=== PATIENT | female | born 1975 | race Caucasian/White ===

== ENCOUNTER 2017-04-19 07:49 | Day surgery (SDC) | payer BC ==
[2017-04-16 11:04] VITALS: BMI 28.9
[~2017-04-19 07:49] MED LIST: HEPARIN SODIUM,PORCINE 5,000 UNIT/ML 1 ML VIAL SQ ONE; HYDROmorphone 0.5 MG/0.5 ML SYRINGE IVP PRN; LACTATED RINGERS 1,000 ML IV SCH; MIDAZOLAM 2 MG/2 ML VIAL IV PRN; ONDANSETRON 4 MG/2 ML VIAL IVP ONE; Pre Op ABX Message 1 EACH MISC MISCELLANE ONE; SCOPOLAMINE 1.5MG/72HR PATCH TRANSDERM ONE
[2017-04-19] MEDS ORDERED: KETAMINE 10 MG/ML 20 ML VIAL ONE (10:15)
[2017-04-19] MEDS ORDERED: LIDOCAINE 1% INJ 10MG/ML (20 ML MDV) ONE (10:15)
[2017-04-19] MEDS ORDERED: fentaNYL (PF) 50 MCG/ML 2 ML AMP ONE (10:15)
[2017-04-19] MEDS ORDERED: PROPOFOL 10 MG/ML 20 ML VIAL IV ONE (10:15)
[2017-04-19] MEDS ORDERED: MIDAZOLAM 2 MG/2 ML VIAL ONE (10:15)
[2017-04-19] MEDS ORDERED: BUPIVACAINE-EPI 0.5%-1:200,000 10 ML VIAL SQ ONE ×2 (10:29)
--- NOTE | 2017-04-19 10:40 | P.OP ---
Date of Procedure: 04/19/17 Preoperative Diagnosis: Perianal skin tag External hemorrhoids Postoperative Diagnosis: Same Procedure(s) Performed: Excision perianal skin tag Implants: NA Anesthesia: MAC, local Surgeon: Sandi Griffin Estimated Blood Loss (ml): 1 Pathology: other Condition: stable Disposition: PACU Indications for Procedure: 41 years old female presents with known external hemorrhoids and perianal skin tag which is causing hygiene issues. Informed consent obtained for excision of perianal skin tag in OR Description of Procedure: Patient was brought to the operating room and placed in lateral decubitus position. IV sedation was given as per anesthesia team. A timeout was performed to verify correct patient and correct procedure. Betadine was used to prep the local area. Local anesthetic was infiltrated to create a local field block 1 x 1 cm anal skin tag was noted just lateral to the anal verge. This was excised using Bovie electrocautery. Hemostasis was checked. The defect was closed with vertical mattress suture of 3-0 nylon. This tolerated the procedure well and was taken to post anesthesia care unit in stable condition. The sponge, instrument and needle count were correct 2
[2017-04-19 10:47] VITALS: TEMP 97.8
[2017-04-19 11:09] VITALS: RESP 18
[2017-04-19 11:41] VITALS: BP 120/66; PULSE 61
== END 2017-04-19 11:46 | disposition home or self-care (01) ==
LOC: OR 07:49
PROVIDERS: ATTEND Surgery
DX: A63.0 Anogenital (venereal) warts (principal); F41.9 Anxiety disorder, unspecified; M79.7 Fibromyalgia; F32.9 Major depressive disorder, single episode, unspecified; E78.5 Hyperlipidemia, unspecified; Z88.8 Allergy status to other drugs, medicaments and biological substances; Z79.891 Long term (current) use of opiate analgesic; Z79.899 Other long term (current) drug therapy; F17.200 Nicotine dependence, unspecified, uncomplicated
CPT/HCPCS: 81025; 88305; 46220; J2250; J1644; J2405; J2001; J3010; J2704

== ENCOUNTER → 2018-02-24 | Outpatient (CLI) | payer BC ==
[2018-02-24 11:07] LABS: Basophils % (A) 0 %; Eosinophils # (A) 0.2 k/uL (0-0.7); Eosinophils % (A) 2 %; HCT 42.7 % (34.0-46.0); Lymphocytes # (A) 2.4 k/uL (1.0-4.8); Lymphocytes % (A) 29 %; MCH 30.3 pg (25.0-35.0); MCHC 30.6 g/dL (31.0-37.0); MCV 99.2 fL (80.0-100.0); Macrocytosis Slight; Mean Platelet Volume 6.6; Monocytes # (A) 0.4 k/uL (0-1.0); Monocytes % (A) 4 %; Neutrophils # (A) 5.4 k/uL (1.3-7.7); Neutrophils % (A) 63 %; Platelet Count 394 k/uL (150-450); RBC 4.31 m/uL (3.80-5.40); RDW 14.5 % (11.5-15.5); WBC 8.5 k/uL (3.8-10.6)
[2018-02-24 11:18] LABS: ALT 28 U/L (9-52); AST 21 U/L (14-36); Albumin 3.9 g/dL (3.5-5.0); Alkaline Phosphatase 131 U/L (38-126); Anion Gap 7 mmol/L; Blood Urea Nitrogen 9 mg/dL (7-17); Calcium 9.3 mg/dL (8.4-10.2); Carbon Dioxide 24 mmol/L (22-30); Chloride 108 mmol/L (98-107); Glucose 93 mg/dL (74-99); Potassium 4.4 mmol/L (3.5-5.1); Sodium 139 mmol/L (137-145); Total Bilirubin 0.6 mg/dL (0.2-1.3); Total Protein 7.2 g/dL (6.3-8.2)
[2018-02-24 18:24] LABS: Rheumatoid Factor 7 IU/mL (0-15)
[2018-02-24 18:31] LABS: Vitamin D 25 Hydroxy 17.4 ng/mL (30.0-100.0)
== END | disposition home or self-care (01) ==
LOC: LABWHC1 10:16
PROVIDERS: ATTEND Nurse Practitioner Acute Care
DX: E55.9 Vitamin D deficiency, unspecified (principal); R53.83 Other fatigue; R25.2 Cramp and spasm; R20.2 Paresthesia of skin
CPT/HCPCS: 36415; 80053; 82306; 82607; 84207; 85025; 86038; 86431

== ENCOUNTER → 2018-03-15 | Outpatient (CLI) | payer BC ==
--- NOTE | 2018-03-16 13:07 | MR ---
EXAMINATION TYPE: MR jose/peyman wo con DATE OF EXAM: 03/15/2018 COMPARISON: NONE HISTORY: Back and neck pain TECHNIQUE: T1 sagittal and coronal, T2 sagittal, and gradient echo axial views of the cervical spine are submitted. FINDINGS: The cranial cervical junction is preserved. There is no abnormal signal seen within the sp inal cord or paraspinal soft tissues. There is mild multilevel degenerative disc disease. Disc desicc ation seen at all levels. Alignment is anatomic with no compression deformities. At C2-3 there is no disc herniation or canal stenosis. No foraminal encroachment. At C3-4 there is mild uncovertebral joint particularly. No disc herniation, canal stenosis, or forami nal encroachment. At C4-5 there is no disc herniation or canal stenosis. No foraminal encroachment. At C5-6 there is mild degenerative disc disease. There is broad-based central and right paracentral d isc bulging with mild effacement of thecal sac. No canal stenosis or foraminal encroachment. At C6-7 there is no disc herniation or canal stenosis. No foraminal encroachment. Vertebral body concepción ngioma C7. At C7-T1 there is no disc herniation, canal stenosis, or foraminal encroachment. IMPRESSION: 1. Mild multilevel degenerative disc disease with broad-based disc bulging C5-C6 with mild effacemen t of thecal sac but no canal stenosis or foraminal encroachment. EXAMINATION TYPE: MR jose/peyman wo con DATE OF EXAM: 03/15/2018 COMPARISON: None HISTORY: Back and neck pain Standard multiplanar, multisequence MRI departmental protocol Multiplanar, multisequence images of the thoracic spine were acquired. FINDINGS: Alignment is anatomic. Vertebral body height and disc interspaces are maintained. There are no compre ssion deformities. There is a slight scoliotic curvature of the vertebral column. Intervertebral disc signal and space a ppears maintained. No evidence of abnormal signal the visualized spinal cord. There is no evidence of disc herniation or canal stenosis at any of the visualized levels. At T9-T10 and T10 history there is facet arthropathy and ligamentum flavum. Neural foramina remain patent. IMPRESSION: 1. Ligamentum flavum hypertrophy at T9-T10 and-T11 with no evidence of foraminal encroachment. 2. There is no evidence of disc herniation or canal stenosis at any of the visualized levels. 3. There is a mild scoliotic curvature of the spine. No significant degenerative disc disease.
== END | disposition home or self-care (01) ==
LOC: RADMRIMAIN 13:44
PROVIDERS: ATTEND Nurse Practitioner Acute Care
DX: M50.222 Other cervical disc displacement at C5-C6 level (principal); M50.322 Other cervical disc degeneration at C5-C6 level; M41.9 Scoliosis, unspecified
CPT/HCPCS: 72141; 72146

== ENCOUNTER → 2018-05-06 | Outpatient (CLI) | payer BC | LOC: LABWHC1 12:14 | PROVIDERS: ATTEND Nurse Practitioner Acute Care | DX: I49.9 Cardiac arrhythmia, unspecified (principal) | CPT/HCPCS: 93005 ==

== ENCOUNTER → 2018-10-21 | Outpatient (CLI) | payer BC ==
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
== END | disposition home or self-care (01) ==
LOC: SLEEP 13:36
PROVIDERS: ATTEND Internal Medicine Critical Care Medicine
DX: G47.10 Hypersomnia, unspecified (principal); F51.8 Other sleep disorders not due to a substance or known physiological condition; M79.7 Fibromyalgia; G43.909 Migraine, unspecified, not intractable, without status migrainosus; G89.29 Other chronic pain; M06.9 Rheumatoid arthritis, unspecified; M71.21 Synovial cyst of popliteal space [Baker], right knee; E78.5 Hyperlipidemia, unspecified; F41.8 Other specified anxiety disorders; F17.210 Nicotine dependence, cigarettes, uncomplicated; Z98.890 Other specified postprocedural states; Z87.828 Personal history of other (healed) physical injury and trauma; Z72.821 Inadequate sleep hygiene; Z79.891 Long term (current) use of opiate analgesic; Z79.899 Other long term (current) drug therapy
CPT/HCPCS: 99211

== ENCOUNTER → 2019-01-20 | Outpatient (CLI) | payer BC ==
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
== END | disposition home or self-care (01) ==
LOC: SLEEP 13:11
PROVIDERS: ATTEND Internal Medicine Critical Care Medicine
DX: G47.33 Obstructive sleep apnea (adult) (pediatric) (principal); M79.7 Fibromyalgia; F41.9 Anxiety disorder, unspecified; G43.709 Chronic migraine without aura, not intractable, without status migrainosus; G89.29 Other chronic pain; G62.9 Polyneuropathy, unspecified; G56.00 Carpal tunnel syndrome, unspecified upper limb; M19.90 Unspecified osteoarthritis, unspecified site; E78.5 Hyperlipidemia, unspecified; Z87.39 Personal history of other diseases of the musculoskeletal system and connective tissue; Z79.899 Other long term (current) drug therapy

== ENCOUNTER → 2023-08-09 | Outpatient (CLI) | payer BC ==
--- NOTE | 2023-08-13 09:52 | MM ---
Reason for Exam: Screening (asymptomatic). Last mammogram was performed 6 year(s) and 4 month(s) ago. Patient History: Menarche at age 12. First Full-Term at age 21. 2019, Bilateral Implants. Maternal aunt had breast cancer under age 50. Maternal aunt had breast cancer at or over age 50. Last menstrual period: 08/09/2023 Risk Values: Mitzy 5 year model risk: 0.8%. NCI Lifetime model risk: 7.4%. Prior Study Comparison: 04/19/2017 Bilateral Screening Mammogram, Unknown. Tissue Density: The breast tissue is heterogeneously dense. This may lower the sensitivity of mammography. Findings: Analyzed By CAD. Bilateral breast implants appear intact. There is no suspicious group of microcalcifications or new suspicious mass. Overall Assessment: Benign, BI-RAD 2 Management: Screening Mammogram of both breasts in [address] [facility] will attempt to contact patient to return for supplemental views and ultrasound if indicated. Patient should continue monthly self-breast exams. A clinical breast exam by your physician is recommended on an annual basis. This exam should not preclude additional follow-up of suspicious palpable abnormalities. Note on Mitzy scores and lifetime risk: 1. A Mitzy score greater than 3% is considered moderate risk. If this is the case, consider specialist referral to assess eligibility for a risk reducing agent. 2. If overall lifetime risk for the development of breast cancer is 20% or higher, the patient may qualify for future screening with alternating mammogram and breast MRI. Electronically signed and approved by: Kalin Worthington DO
== END | disposition home or self-care (01) ==
LOC: RADMAMWWP 15:25
PROVIDERS: ATTEND Family Medicine
DX: Z12.31 Encounter for screening mammogram for malignant neoplasm of breast (principal); Z80.3 Family history of malignant neoplasm of breast
CPT/HCPCS: 77063; 77067